=== PATIENT | male | born 1990 | race Caucasian/White ===

== ENCOUNTER 2018-11-04 17:13 | Emergency (ER) | payer OTHER ==
[2018-11-04 17:23] VITALS: BP 127/66; TEMP 98.6; BMI 25.3
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
== END 2018-11-04 18:45 | disposition home or self-care (01) ==
LOC: ED 17:13
DX: M54.5 Low back pain (principal); W50.0XXA Accidental hit or strike by another person, initial encounter; F17.210 Nicotine dependence, cigarettes, uncomplicated
CPT/HCPCS: 99283